=== PATIENT | female | born 2005 | race Caucasian/White ===

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

== ENCOUNTER 2024-04-30 21:40 | Emergency (ER) | payer BC, OTHER | END 2024-04-30 22:28 | disposition home or self-care (01) | LOC: VM.ED 21:40 | DX: S63.641A Sprain of metacarpophalangeal joint of right thumb, initial encounter (principal); X50.1XXA Overexertion from prolonged static or awkward postures, initial encounter | CPT/HCPCS: 73140-F5; 99283 ==

== ENCOUNTER 2024-11-22 19:37 | Emergency (ER) | payer OTHER ==
[2024-11-22] MEDS: Silver Sulfadiazine 1% Crm 50 GM Tube TOP ONE (19:55)
[2024-11-22] MEDS: Diphtheria,Pertussis(Acell),Tetanus Vaccine 0.5 ML Syringe IM ONE (19:55)
[2024-11-22 20:52] VITALS: BP 150/97; PULSE 96
== END 2024-11-22 20:20 | disposition home or self-care (01) ==
LOC: VM.ED 19:37
DX: T23.191A Burn of first degree of multiple sites of right wrist and hand, initial encounter (principal); T24.131A Burn of first degree of right lower leg, initial encounter; T24.132A Burn of first degree of left lower leg, initial encounter; Z23 Encounter for immunization; X08.8XXA Exposure to other specified smoke, fire and flames, initial encounter; Y93.89 Activity, other specified
CPT/HCPCS: 16000; 90471; 90715; 99283; 99283-25; A9270-GY